=== PATIENT | male | born 1960 | race Caucasian/White ===

== ENCOUNTER → 2017-10-10 12:45 | Outpatient (CLI) | payer OTHER, SELFPAY ==
[2017-10-11 09:54] LABS: PSA,Total- Diagnostic 4.32 ng/mL (0.0-4.0)
== END ==
PROVIDERS: Family Provider Family Medicine; PCP Family Medicine; Visit Provider Urology
DX: R97.20 Elevated prostate specific antigen [PSA] (principal)
CPT/HCPCS: 36415; 84153; G0103

== ENCOUNTER → 2018-10-16 17:28 | Outpatient (CLI) | payer OTHER, SELFPAY ==
[2018-10-16 18:21] LABS: PSA,Total- Diagnostic 3.64 ng/mL (0.0-4.0)
== END ==
PROVIDERS: Family Provider Family Medicine; PCP Family Medicine; Referring Provider Urology; Visit Provider Urology
DX: R97.20 Elevated prostate specific antigen [PSA] (principal)
CPT/HCPCS: 36415; 84153

== ENCOUNTER → 2020-02-22 12:02 | Outpatient (CLI) | payer OTHER, SELFPAY | PROVIDERS: PCP Family Medicine; Referring Provider Urology; Visit Provider Urology | DX: R97.20 Elevated prostate specific antigen [PSA] (principal) | CPT/HCPCS: 36415; 84153; G0103 ==

== ENCOUNTER → 2022-11-30 | Outpatient (CLI) | payer OTHER, SELFPAY ==
--- NOTE | 2022-11-30 10:45 | MRI_ITS ---
STUDY: MR PELVIS WITH AND WITHOUT CONTRAST (PROSTATE) REASON FOR EXAM: Male, 62 years old. Elevated PSA TECHNIQUE: Standardized multiparametric prostate MRI with T1, T2, DWI/ADC sequences were obtained in 3 orthogonal planes, and dynamic contrast enhancement sequences. ml of 22mL CLARISCAN contrast material was administered intravenously for the contrast portion of the examination. COMPARISON: None. FINDINGS: The prostate volume measures 62 mm3. The contours of the prostate gland are lobulated. There is mild mass effect on the bladder base. The transition zone is heterogenous. PI-RADS DWI score 3 - Focal mildly hypointense on ADC and isointense/mildly hyperintense on high b-value DWI. PI-RADS T2W score 3 - Heterogeneous signal intensity with obscured margins (1.3 cm right posterior mid transitional zone on image 18 series 6 and image 14 series 3). Contrast enhancement no early or contemporaneous enhancement; or diffuse multifocal enhancement NOT corresponding to a focal finding on T2W and/or DWI or focal ehancement responding to a lesion demonstrating features of BPH onT2WI (including features of extruded BPH in the PZ). The peripheral zone is homogenous. PI-RADS DWI score 1 - No abnormality (normal) on ADC or high b-value DWI. PI-RADS T2W score 1 - Uniformaly hyperintense (normal). Contrast enhancement no early or contemporaneous enhancement; or diffuse multifocal enhancement NOT corresponding to a focal finding on T2W and/or DWI or focal enhancement responding to a lesion demonstrating features of BPH onT2WI (including features of extruded BPH in the PZ). The seminal vesicles demonstrate normal margins and T2 signal pattern. No mass lesion or invasion depicted. The rectoprostatic angles are normal. Urinary bladder is poorly distended. No discrete focal urinary bladder mass. The vascular structures of the are normal. The visualized hollow viscus structures are normal. Fat-containing inguinal hernias. No bone marrow edema or mass lesion depicted. MRI/Pelvis W/WO Contrast IMPRESSION: 1. PIRADS v2.1 2019 -- 3 - Intermediate (clinically significant cancer is equivocal). Electronically Signed: Jaime Timmons (Brooks), at 13:53 EDT ,
[2022-11-30 10:56] LABS: CREATININE FINGERSTICK 1.1 mg/dL (0.70-1.30); EGFR FINGERSTICK > 60.0000 mL/min (>60)
== END | disposition home or self-care (01) ==
PROVIDERS: PCP Family Medicine; Referring Provider Urology; Visit Provider Urology
DX: N40.1 Benign prostatic hyperplasia with lower urinary tract symptoms (principal); R97.20 Elevated prostate specific antigen [PSA]
CPT/HCPCS: 72197; A9575